=== PATIENT | female | born 1950 | race Caucasian/White ===

== ENCOUNTER → 2017-05-13 | Day surgery (SDC) | payer MEDICARE, OTHER ==
[~2017-05-13] MED LIST: BENADRYL25 M3 PO; IMITREX50 MG PO; PERCOCET10 PO; WOMEN'S DAILY1 EAC4 PO; ZANAFLEX4 M1 PO
--- NOTE | ~2017-05-13 | OR ---
Unit #: [id number] #: [id number] Patient: YURI CORREA [id number] [address] [place], [place] [address] [id number] O MR#: [id number] NAME: YURI CORREA ROOM: Date of Procedure: 05/13/2017 Admission Date: 05/13/2017 Surgeon: Marcos Wilson M.D. : 1950 Attending Physician: Marcos Wilson M.D. Primary Care Physician: Nicho Mehta M.D. OPERATIVE REPORT PREOPERATIVE DIAGNOSES Back pain, lumbar facet disease. POSTOPERATIVE DIAGNOSES Back pain, lumbar facet disease. PROCEDURE PERFORMED Lumbar facet injection x2 levels with intravenous sedation and fluoroscopic guidance for needle localization. INDICATIONS FOR PROCEDURE The patient is a 66-year-old female with worsening back pain. Workup was demonstrated significant multilevel degenerative lumbar facet disease. She has failed to settle with chiropractic treatment, physical therapy, medical management, or epidural steroids. Examination is consistent with facet disease as the etiology for pain. Plan is for a trial of diagnostic and therapeutic injections, we will start at the L4-L5 and L5-S1 levels. We will consider L2-L3 and L3-L4 response to this. Risks and benefits of all have been reviewed. DESCRIPTION OF PROCEDURE The patient was placed in a prone position. Standard monitors were applied. 2 mg of Versed given for sedation and anxiolysis, which were adequate. Vital signs remained stable. The skin then overlying the left-sided L4-L5 and L5-S1 facets localized with 1% lidocaine. At both these levels, 22-gauge Quincke point spinal needles were advanced with biplanar fluoroscopic guidance to bring the needle tip to within the edge of the respective facet joints. After this was confirmed with fluoroscopy, a dose of 1 mL of a mixture of 80 mg of Depo-Medrol and 3 mL of 0.25% bupivacaine were deposited at each level. The needles were flushed and removed. The exact same procedure was then repeated on the right at the L4-L5 and L5-S1 levels. Again after using fluoroscopy to confirm proper needle tip positioning within those respective facet joints, a dose of 1 mL of the previous mentioned mixture was used. The needles were flushed and removed. The patient tolerated the procedure otherwise well and was discharged to the recovery room in stable condition. Dictated by... Marcos Wilson M.D. Unit #: [id number] #: [id number] Patient: YURI CORREA LHClary/delroy TD: 05/13/2017 12:59 JOB #: [id number] OPERATIVE REPORT Page 1 of 1 X Marcos Wilson MD X PROCEDURE OPERATIVE NOTE
== END | disposition home or self-care (01) ==
LOC: CCSC 10:39
DX: M47.26 Other spondylosis with radiculopathy, lumbar region (principal); M53.86 Other specified dorsopathies, lumbar region; K21.9 Gastro-esophageal reflux disease without esophagitis; M19.90 Unspecified osteoarthritis, unspecified site; Z90.49 Acquired absence of other specified parts of digestive tract; Z90.710 Acquired absence of both cervix and uterus; Z79.899 Other long term (current) drug therapy
CPT/HCPCS: J1040; J2250

== ENCOUNTER → 2017-05-20 | Day surgery (SDC) | payer MEDICARE, OTHER ==
--- NOTE | ~2017-05-20 | OR ---
Unit #: [id number] #: [id number] Patient: YURI CORREA [id number] [address] [place], [place] [address] [id number] O MR#: [id number] NAME: YURI CORREA ROOM: Date of Procedure: 05/20/2017 Admission Date: 05/20/2017 Surgeon: Marcos Wilson M.D. : 1950 Attending Physician: Marcos Wilson M.D. Primary Care Physician: Generic Doctor Not In System OPERATIVE REPORT PREOPERATIVE DIAGNOSES Back pain, degenerative facet disease. POSTOPERATIVE DIAGNOSES Back pain, degenerative facet disease. PROCEDURE PERFORMED Lumbar facet injection x2 levels with intravenous sedation and fluoroscopic guidance for needle localization. INDICATIONS FOR PROCEDURE The patient is a 67-year-old female with long history of back, bilateral lower extremity, and hip pain. She has failed to settle with extensive conservative treatment including epidural steroids and rehabilitation. She does have significant facet disease from L2-S1. Symptom complex was consistent with possible facet etiology to her pains. The decision was made to give a trial of diagnostic and therapeutic, hopefully facet injections. Initial injection done at L4-L5 and L5-S1. She did somewhat, but the day over still had pain. She had significant complaint of pain in her back and down her legs. This is unlikely directly associated with facet injections. Based on a good response to the first injection, we will trial of diagnostic and hopefully therapeutic injections at L2-L3 and L3-L4 bilaterally. DESCRIPTION OF PROCEDURE The patient was placed in a prone position. Standard monitors were applied. 2 mg of Versed were given for sedation and anxiolysis, which were adequate. Vital signs remained stable. Sterile prep and drape then of the lumbar area was performed. The skin then overlying the left-sided L2-L3 and L3-L4 facet was localized with 1% lidocaine. A 22-gauge Quincke point spinal needle was then advanced down with fluoroscopic guidance to bring the needle tips within the edge of the respective L2-L3 and L3-L4 facet joints on the left. After confirming proper positioning, a dose of 1 mL of a mixture of 80 mg of Depo-Medrol and 3 mL of 0.25% bupivacaine were deposited. The needles were flushed and removed. The exact same procedure was then repeated on the right at L2-L3 and L3-L4. The same dosing of medication was used. The needles were flushed before removal and if this is not give the patient adequate response, she may need a repeat lumbar MRI to assess any changes in her pathology or if that is updated, then may be medical management alone for her symptom complex. Unit #: [id number] #: [id number] Patient: YURI CORREA Dictated by... Ji Yepez/delroy TD: 05/20/2017 12:31 JOB #: [id number] OPERATIVE REPORT Page 1 of 1 X Marcos Wilson MD X PROCEDURE OPERATIVE NOTE
== END | disposition home or self-care (01) ==
LOC: CCSC 10:19
DX: M47.26 Other spondylosis with radiculopathy, lumbar region (principal); M53.87 Other specified dorsopathies, lumbosacral region; M19.90 Unspecified osteoarthritis, unspecified site; K21.9 Gastro-esophageal reflux disease without esophagitis; Z91.041 Radiographic dye allergy status; Z79.891 Long term (current) use of opiate analgesic; Z79.899 Other long term (current) drug therapy
CPT/HCPCS: J1040; J2250